=== PATIENT | male | born 1975 | race Caucasian/White ===

== ENCOUNTER 2023-06-24 14:36 | Observation (INO) | payer MEDICAID, SELFPAY ==
[2023-06-24] VITALS (9 sets, daily range): BP systolic 85–122; BP diastolic 48–89; PULSE 65–89; RESP 14–18; TEMP 36.6–37.3; O2SAT 95–99; BMI 30.4; BMI 29.2
--- NOTE | 2023-06-24 14:49 | EKG12_ITS ---
Test Reason : SYNCOPE Blood Pressure : / mmHG Vent. Rate : 070 BPM Atrial Rate : 070 BPM P-R Int : 158 ms QRS Dur : 092 ms QT Int : 408 ms P-R-T Axes : 056 059 058 degrees QTc Int : 440 ms Normal sinus rhythm Normal ECG Confirmed by KILEY MIRANDA, BAKARI ([id number]), copy editor NOAH ADAMS ([id number]) on 06/25/2023 10:05:49 AM Referred By: ALBERT Confirmed By:BAKARI CAO MD
--- NOTE | 2023-06-24 14:51 | EX.ED.DYSGE1 ---
[facility] <Dr. Sourav Flores MD - Last Filed: 06/28/23 08:22> History of Present Illness Chief Complaint: Syncope Detail of Chief Complaint: Syncope x2 after taking hits of marijuana Informant: patient and EMS (Squad administered Narcan because he had pinpoint pupils and was going out . Will need to assess run sheet.) Onset/Context/Timing Onset: Today, Hours and - (He reports when he was not [facility] he was diagnosed pulmonary embolus. He was placed on 1 week of blood thinner. He states the follow-up appointment was canceled and he is presently on no blood thinners. This was several months ago.) Current Severity: Mild Maximum Severity: Severe Worsened by: Uncertain Relieved by: Did get better with Narcan with respect to respiratory status and level of Associated Symptoms Associated Symptoms: Patient is uncertain Narrative Narrative: Patient is a 48-year-old male. He reports he was diagnosed with pulmonary embolus several months ago. He was given a starter dose of Xarelto. The physician he was referred to apparently was no longer in town. He is still waiting for a rescheduled appointment. The ER physician who saw him at outside facility would not prescribe Xarelto for him. Patient states today he took 2 hits of marijuana and became unresponsive. He had single episode x2 per nurse. EMS report the time of this note is not available for review. Reportedly he had pinpoint pupils and was not very responsive. His level of consciousness improved after Narcan. He denies fever, chills night sweats. He denies chest discomfort. He denies shortness of breath. He denies abdominal pain. Denies black or maroon-colored stool. He denies urologic symptoms. Patient denies history of coronary disease. Patient denies history of syncope in the past. I was asked to see patient immediately since he was diaphoretic and hypotensive. EMS report was available and patient apparently flagged down EMS. He walked to the cot. IV was established. Patient had deterioration and became disoriented pulling out the IV. This is different than what I was verbally told. He did admit to EMS smoked marijuana. Prior similar symptoms: No Recent Illness/Hospitalization: Yes (Pulmonary embolus) [facility] <Dr. Sourav Flores MD - Last Filed: 06/28/23 08:22> [facility] Medical History Pulmonary embolism Home Medications apixaban 5 mg (74 tabs) tablets in a dose pack (Eliquis DVT-PE Treat 30D Start) 5 mg PO BID #74 tabs 06/27/23 [Rx Last Taken Unknown] Allergy/AdvReac Type Severity Reaction Status Date / Time No Known Allergies Allergy Verified 06/24/23 14:44 Social History household members: none Smoking Status: Current every day smoker tobacco type: cigarettes ROS <Dr. Sourav Flores MD - Last Filed: 06/28/23 08:22> ROS ED Constitutional Constitutional ED: Denies chills, fever(s), subjective, sweats or weight loss Eyes Eyes: Denies blurry vision, change in vision or diplopia ENT ENT ED: Denies ear pain, rhinorrhea or sore throat Cardiovascular Cardiovascular: Reports other Details: Syncope and collapse ; Denies chest pain, orthopnea, palpitations, paroxysmal nocturnal dyspnea or racing heartbeat Respiratory/Chest Respiratory/Chest: Denies cough, dyspnea, dyspnea on exertion, orthopnea or paroxysmal nocturnal dyspnea Gastrointestinal Gastrointestinal: Denies abdominal pain, melena, nausea or vomiting Genitourinary Genitourinary ED: Denies dysuria or hematuria Musculoskeletal Musculoskeletal: Denies arthralgias, back pain, myalgias or neck pain Integumentary Denies abscess, Abrasions or rash Neurologic Neurologic: Reports weakness; Denies headache(s) or paresthesias Psychiatric Psychiatric: Denies anxiety Endocrine Endocrinology: Denies cold intolerance or heat intolerance Hematologic/Lymphatic Hematologic/Lymphatic: Reports systems reviewed and no addt'l complaints, except as documented EXAM <Dr. Sourav Flores MD - Last Filed: 06/28/23 08:22> Physical Exam Narrative Exam Narrative: Patient is hypotensive. He is not bradycardic. He appears pale. He is slightly moist. Const Vital Signs: 06/24/23 14:37 06/24/23 14:41 06/24/23 14:41 Temperature 98.1 F Temperature Source Oral Pulse Rate 65 75 Respiratory Rate 14 14 Respiratory Effort Short of Breath Respiratory Pattern Normal Blood Pressure Blood Pressure Mean Pulse Ox 95 96 Oxygen Delivery Method Room Air 06/24/23 14:43 06/24/23 15:36 Temperature Temperature Source Pulse Rate 72 Respiratory Rate 14 Respiratory Effort Respiratory Pattern Blood Pressure 85/48 L 104/54 L Blood Pressure Mean 60 70 Pulse Ox 98 Oxygen Delivery Method Room Air Positive well nourished and well developed Constitutional Narrative: Patient does not look well. General Appearance ED: well developed, diaphoretic and pallor; Negative for cyanotic or NAD HEENT Reports moist mucous membranes HEENT Narrative: Head is atraumatic normocephalic. Ears are normal. auditory canals are normal. TMs normal. Nares patent. Posterior pharynx is normal. Eyes PERRL and EOMs intact bilaterally General Eye ED: Negative for pale conjunctiva or scleral icterus Neck no lymphadenopathy, supple and no JVD Chest Wall inspection of chest normal and palpation of chest normal Resp normal respiratory effort and clear to auscultation bilaterally Cardio regular rate, regular rhythm, S1 normal heart sound, S2 normal heart sound and no murmurs GI normal to inspection, nondistended, normoactive bowel sounds, non-tender, non-distended and no masses; Negative for hepatosplenomegaly GI Narrative: There is no palpable pulsatile mass. There is no abdominal bruit Back/Spine no CVA tenderness Thoracic Spine / Upper Back: Negative for thoracic spinal tenderness Lumbar Spine / Lower Back: Negative for lumbar spinal tenderness Extremity normal to inspection General Extremety ED: Negative for edema or tenderness General Extremity: Negative for edema Neuro oriented x3, CN's II-XII intact bilaterally and no sensory deficits noted Sensorium / Orientation: alert Psych mental status grossly normal Skin no rashes or lesions noted and no wounds General Skin Exam: pallor; Negative for jaundice <Dr. Estefania Shields MD - Last Filed: 06/24/23 17:13> Physical Exam Const Vital Signs: 06/24/23 14:37 06/24/23 14:41 06/24/23 14:41 Temperature 98.1 F Temperature Source Oral Pulse Rate 65 75 Respiratory Rate 14 14 Respiratory Effort Short of Breath Respiratory Pattern Normal Blood Pressure Blood Pressure Mean Pulse Ox 95 96 Oxygen Delivery Method Room Air 06/24/23 14:43 06/24/23 15:36 Temperature Temperature Source Pulse Rate 72 Respiratory Rate 14 Respiratory Effort Respiratory Pattern Blood Pressure 85/48 L 104/54 L Blood Pressure Mean 60 70 Pulse Ox 98 Oxygen Delivery Method Room Air MDM <Dr. Sourav Flores MD - Last Filed: 06/28/23 08:22> [facility] Narrative Medical decision making narrative: Differential is expansive. Patient's single episode may be due to vasovagal, illicit drug use, pulmonary embolus since he is noncompliant with his anticoagulant. This could also represent cardiac ischemia. Will obtain EKG, appropriate blood work, tox screen. Since patient is hypotensive fluid bolus was ordered. No old lab results or records available through [facility]. History & Record Review Additional record(s) reviewed:: Prior labs and No prior records Lab Data Attestation: I reviewed the patient's lab results. Lab results narrative: CBC is remarkable for microcytic anemia. There are no old labs for comparison. Basic metabolic panel is unremarkable. Glucose is 130 with normal CO2 anion gap. First troponin is normal at 4. Alcohol was not detected. Lactate is elevated at 2.4. Suspect this is due to poor perfusion since he arrived hypotensive. His blood pressure did improve with fluids. Labs: Laboratory Results - last 24 hr 06/24/23 14:40 WBC 8.2 RBC 4.38 L Hgb 9.8 L Hct 32.3 L MCV 73.7 L MCH 22.4 L MCHC 30.3 L RDW Std Deviation 46.8 H RDW Coeff of Domitila 17.9 H Plt Count 459 H MPV 8.6 Immature Gran % (Auto) 0.500 Neut % (Auto) 38.1 L Lymph % (Auto) 44.2 H [place] % (Auto) 13.3 H Eos % (Auto) 2.9 Baso % (Auto) 1.0 Absolute Neuts (auto) 3.1 Absolute Lymphs (auto) 3.62 Nucleated RBC % 0 D-Dimer Quant (PE/DVT) 1.43 H* Sodium 141 Potassium 3.6 Chloride 109 H Carbon Dioxide 23.0 Anion Gap 9 BUN 18 Creatinine 1.15 Estim Creat Clear Calc 83.67 Est GFR (MDRD) Af Amer 87 Est GFR (MDRD) Non-Af 72 BUN/Creatinine Ratio 15.7 Glucose 130 H Lactic Acid 2.4 H* Calcium 8.6 Troponin I High Sens 4 Ethyl Alcohol < 3.0 D-dimer is elevated. With patient's past history will obtain CTA to assess for chronic versus subacute versus acute PE. Radiography Diagnostic Testing: Clinical Impression(s) from Imaging Studies Chest CTA 08/03/23 15:45 IMPRESSION: Small volume nonocclusive acute pulmonary emboli in the left main pulmonary artery. No evidence of right heart strain. Electronically Signed: Jose Manuel Lawrence MD at 17:00 EDT , ADDENDUM: 06/24/23 1713 IMPRESSION: Small volume nonocclusive acute pulmonary emboli in the left main pulmonary artery. No evidence of right heart strain. N.B. : BENNETT Mccann RN, confirmed on 06/24/2023 17:06:30 (ET) that the healthcare facility has received the radiology report. Electronically Signed: Jose Manuel Lawrence MD at 17:00 EDT , Rhythm Strip Rate: 68 Ectopy: None EKG Initial EKG: Attestation: I personally reviewed and interpreted this EKG as follows: Interpretation: Sinus Rhythm (Rate is 70. The EKG is normal. OK interval is 158 ms. Cures duration 92 ms. QT duration 408 ms. [place] is normal.) Treatment and Re-Evaluation :: Patient's blood pressure responded to IV fluids. Talk screen is still pending. Will turn patient's care over to the evening physician Dr. Estefania Nicholson. Suspect the episode is related to his illicit drug use. <Dr. Estefania Shields MD - Last Filed: 06/24/23 17:13> [facility] Lab Data Labs: Laboratory Results - last 24 hr 06/24/23 14:40 WBC 8.2 RBC 4.38 L Hgb 9.8 L Hct 32.3 L MCV 73.7 L MCH 22.4 L MCHC 30.3 L RDW Std Deviation 46.8 H RDW Coeff of Domitila 17.9 H Plt Count 459 H MPV 8.6 Immature Gran % (Auto) 0.500 Neut % (Auto) 38.1 L Lymph % (Auto) 44.2 H [place] % (Auto) 13.3 H Eos % (Auto) 2.9 Baso % (Auto) 1.0 Absolute Neuts (auto) 3.1 Absolute Lymphs (auto) 3.62 Nucleated RBC % 0 D-Dimer Quant (PE/DVT) 1.43 H* Sodium 141 Potassium 3.6 Chloride 109 H Carbon Dioxide 23.0 Anion Gap 9 BUN 18 Creatinine 1.15 Estim Creat Clear Calc 83.67 Est GFR (MDRD) Af Amer 87 Est GFR (MDRD) Non-Af 72 BUN/Creatinine Ratio 15.7 Glucose 130 H Lactic Acid 2.4 H* Calcium 8.6 Troponin I High Sens 4 Ethyl Alcohol < 3.0 Radiography Diagnostic Testing: Clinical Impression(s) from Imaging Studies Chest CTA 06/24/23 15:45 IMPRESSION: Small volume nonocclusive acute pulmonary emboli in the left main pulmonary artery. No evidence of right heart strain. Electronically Signed: Jose Manuel Lawrence MD at 17:00 EDT , ADDENDUM: 06/24/23 1713 IMPRESSION: Small volume nonocclusive acute pulmonary emboli in the left main pulmonary artery. No evidence of right heart strain. N.B. : BENNETT Mccann RN, confirmed on 06/24/2023 17:06:30 (ET) that the healthcare facility has received the radiology report. Electronically Signed: Jose Manuel Lawrence MD at 17:00 EDT , Treatment and Re-Evaluation :: Patient's blood pressure responded to IV fluids. Talk screen is still pending. Will turn patient's care over to the evening physician Dr. Estefania Nicholson. Suspect the episode is related to his illicit drug use. Patient signed out to me pending CTA. CT reveals a small volume nonocclusive acute pulmonary emboli in the left main pulmonary artery. No evidence of heart strain at this time. Test results are discussed with the patient. He states his initial blood clot was about 2 months ago. There was no enticing factor for that. In light of this patient will have a hypercoagulable panel drawn and he will be given a dose of Lovenox. Blood pressure is still around 105 systolic. I will speak with hospitalist regarding observation given his PE and syncope x2. Discharge Plan Dx/Rx/DC Orders Clinical Impression: Acute alteration in mental status, Acute hypotension, Illicit drug use, Pulmonary embolism Disposition Disposition: Acute Care Hospital [facility] Discharge Date/Time: 06/24/23 18:31
[2023-06-24] MEDS: 0.9% Normal Saline 1,000 ML 1000 ML IV (15:04)
[2023-06-24 15:22] LABS: Absolute Lymphocyte Count 3.62 X10^3/uL (0.83-4.51); Absolute Neutrophil Count 3.1 X10^3/uL (2.0-7.7); Basophil# 0.08 X10^3/uL; Eosinophil# 0.24 X10^3/uL; Eosinophils% 2.9 % (0-5); Hematocrit 32.3 % (40-54); Hemoglobin 9.8 g/dL (13.0-16.5); Lymphocyte # 3.62 X10^3/ul (0.83-4.51); Lymphocyte % 44.2 % (19-41); Mean Corp Hgb Conc 30.3 g/dL (32-36); Mean Corpuscular Hgb 22.4 pg (27.0-32.0); Mean Corpuscular Volume 73.7 fL (80-94); Mean Platelet Vol. 8.6 fl (6.2-12.0); Monocyte# 1.09 X10^3/uL; Monocyte% 13.3 % (0-10); NRBC Flagged by Analyzer 0 % (0-5); Neutrophil # 3.12 X10^3/uL (2.7-7.7); Neutrophil % 38.1 % (47-70); Platelet Count 459 K/mm3 (150-450); RBC Distribution Width CV 17.9 % (11.6-14.6); RBC Distribution Width SD 46.8 fl (35.1-43.9); Red Blood Count 4.38 M/mm3 (4.6-6.2); White Blood Count 8.2 K/mm3 (4.4-11.0)
[2023-06-24 15:43] LABS: D-Dimer Quantitative (DVT/PE) 1.43 FEU/ug/m (0.27-0.49)
--- NOTE | 2023-06-24 15:45 | CT_ITS ---
ACR Level 3 findings have been noted. An addendum which confirms receipt of the report will follow. INDICATION: Dyspnea, hypotension, elevated D-dimer EXAMINATION: CTA Chest WO/W Contrast Injection TECHNIQUE: Helically acquired images were obtained of the chest following administration of IV contrast. A radiation dose optimization technique was used for this scan. 3D postprocessing images including MIPS were reviewed. IV Contrast dosage and agent: IV 100mL [id number] COMPARISON: None. FINDINGS: Lungs: Scattered subsegmental atelectasis. Mediastinum: The cardiomediastinal silhouette is not enlarged. No mediastinal, hilar or axillary adenopathy. Mild aortic arch and coronary artery calcifications. Small volume nonocclusive clot seen within the left main pulmonary artery. No evidence of right heart strain. Pleura: Unremarkable Bones/Soft tissues: There are diffuse degenerative changes of the spine. Upper abdomen: No visualized abnormalities in the upper abdomen. CT/CTA Chest W/WO Contrast IMPRESSION: Small volume nonocclusive acute pulmonary emboli in the left main pulmonary artery. No evidence of right heart strain. Electronically Signed: Jose Manuel Lawrence MD at 17:00 EDT ,
[2023-06-24 15:51] LABS: Anion Gap 9 (5-15); BUN 18 mg/dL (7-18); BUN/Creat Ratio 15.7 RATIO (10-20); Calcium,Total 8.6 mg/dL (8.5-10.1); Chloride 109 mmol/L (98-107); Creatinine, Serum 1.15 mg/dL (0.70-1.30); EST Glomerular Filtration Rate 72 mL/min (>60); Est Glom Filt Rate - Afr Amer 87 mL/min (>60); Estimated Creatinine Clearance 83.67 ml/min; Glucose 130 mg/dL (74-106); Potassium 3.6 mmol/L (3.5-5.1); Sodium Level 141 mmol/L (136-145); Troponin-I HS 4 pg/mL (3.0-78.0)
[2023-06-24 15:54] LABS: Alcohol, Blood (Medical)-Serum < 3.0 mg/dL
[2023-06-24 16:36] LABS: Lactic Acid 2.4 mmol/L (0.4-1.9)
--- NOTE | 2023-06-24 17:18 | PCM.HP.STD ---
HPI - General General Date of Admission: 06/24/23 Date of Service: 06/24/23 Chief Complaint: Syncope x2 stool after taking smoking marijuana HPI Narrative NANCY ELLIOTT, is a 48 MWas brought to ED by EMS for 2 times after he taking hits of marijuana as per the patient. Patient is honest in admitting that he uses marijuana very often, smokes cigarette and was regularly using crack cocaine until 2 weeks ago since then he has not used it. Patient is stated that he had 2 episodes of syncope which lasted for about 30 seconds to about 1 minutes in rapid succession when he gets unaware, unconscious and then wake up after little confusion. He said he had also urinary incontinence during the episode. He denies prior history of seizure but had similar episodes of syncope about 7 times in 2 days about 3 months ago when he had first-time PE. At that time he was started on Eliquis but was given only 5 days of prescription. He has a history of his smoking about 2 packs/day started at the age of 11 and then cut down to 10 to 15 cigarettes. Patient denies shortness of breath at rest or on exertion, fever chills, has mild dry cough sometimes but not recently. In ED, he had CT angiogram of chest which shows small volume nonocclusive acute pulmonary embolism left main pulmonary artery but no right heart strain. Patient was given therapeutic dose of Lovenox. Patient blood pressure was also on lower side in ED. It was 85/48 and then improved to 100/54. No hypoxia or tachypnea. Patient denies history of thromboembolism in first-degree family relative and states no respiratory history. First time he had pulmonary Wilcox 3 months ago it happened spontaneously therefore hyperchloride work-up ordered by ED physician [facility], [facility] Medical History Pulmonary embolism Allergy/AdvReac Type Severity Reaction Status Date / Time No Known Allergies Allergy Verified 06/24/23 14:44 Social History household members: none Smoking Status: Current every day smoker tobacco type: cigarettes ROS ROS Narrative Constitutional: No fever. No fatigue or acute URI symptoms. HEENT: Reports systems reviewed and no addt'l complaints, except as documented Respiratory/Chest: No acute shortness of breath or respiratory distress or wheezing. CVS: No history of coronary artery disease. Denies chest pain/pressure or tightness or pleuritic chest pain Gastrointestinal: Denies coffee ground emesis, hematemesis or vomiting Genitourinary: Denies burning urination or new urinary tract symptoms Musculoskeletal: Denies acute joint pain or limited range of motion. No acute injury Neurologic: As described in HPI. Suspicion of possible seizure as patient had postictal confusion and urinary incontinence skin: No ulcer. No rash Endocrinology: Reports systems reviewed and no addt'l complaints, except as documented Hematologic/Lymphatic: Reports systems reviewed and no addt'l complaints, except as documented Rest 14 ROS are negative except as mentioned in HPI Vital Signs Vital Signs Vital Signs: 06/24/23 14:37 06/24/23 14:41 06/24/23 14:41 Temperature 98.1 F Temperature Source Oral Pulse Rate 65 75 Respiratory Rate 14 14 Respiratory Effort Short of Breath Respiratory Pattern Normal Blood Pressure Blood Pressure Mean Pulse Ox 95 96 Oxygen Delivery Method Room Air 06/24/23 14:43 06/24/23 15:36 Temperature Temperature Source Pulse Rate 72 Respiratory Rate 14 Respiratory Effort Respiratory Pattern Blood Pressure 85/48 L 104/54 L Blood Pressure Mean 60 70 Pulse Ox 98 Oxygen Delivery Method Room Air Weight Weight: 218 lb 6.4 oz Body Mass Index (BMI) 30.4 Physical Exam Narrative General: Alert, Oriented x3, Cooperative HEENT: Atraumatic, PERRLA, EOMI, Normocephalic Oral: Oral oral mucosa dry. No Gingival or Mucosal Lesions/ Ulcerations Neck: Supple, No JVD, Negative Carotid Bruits Lungs: Air entry diminished in bilateral lung bases. Mild bilateral expiratory rhonchi. Cardiovascular: Regular rate, Regular Rhythm, Normal S1, Normal S2, No murmurs Abdomen: Bowel Sounds Present, Soft, Non Tender, Non-Distended : No renal angle tenderness. No suprapubic tenderness. Extremities: No edema, Capillary Refill Less than 3 Seconds Skin: No rashes, No breakdown Musculoskeletal: No Tenderness to Palpation of Joints or Extremities. Muscle strength 5/5 at major joints. Neurological: Cranial nerves II-XII grossly intact, DTR 2+/4. No acute focal neurological deficit. Psych/Mental Status: Normal Affect, Appropriate. Results Lab / Micro Data 06/24/23 14:40 06/24/23 14:40 Labs: Laboratory Results - last 24 hr 06/24/23 14:40: WBC 8.2, RBC 4.38 L, Hgb 9.8 L, Hct 32.3 L, MCV 73.7 L, MCH 22.4 L, MCHC 30.3 L, RDW Std Deviation 46.8 H, RDW Coeff of Domitila 17.9 H, Plt Count 459 H, MPV 8.6, Immature Gran % (Auto) 0.500, Neut % (Auto) 38.1 L, Lymph % (Auto) 44.2 H, Gallia % (Auto) 13.3 H, Eos % (Auto) 2.9, Baso % (Auto) 1.0, Absolute Neuts (auto) 3.1, Absolute Lymphs (auto) 3.62, Nucleated RBC % 0, D-Dimer Quant (PE/DVT) 1.43 H*, Sodium 141, Potassium 3.6, Chloride 109 H, Carbon Dioxide 23.0, Anion Gap 9, BUN 18, Creatinine 1.15, Estim Creat Clear Calc 83.67, Est GFR (MDRD) Af Amer 87, Est GFR (MDRD) Non-Af 72, BUN/Creatinine Ratio 15.7, Glucose 130 H, Lactic Acid 2.4 H*, Calcium 8.6, Troponin I High Sens 4, Ethyl Alcohol < 3.0 Rhythm Strip Rate: 68 Ectopy: None Radiology Impression Chest CTA 06/24/23 15:45 IMPRESSION: Small volume nonocclusive acute pulmonary emboli in the left main pulmonary artery. No evidence of right heart strain. Electronically Signed: Jose Manuel Lawrence MD at 17:00 EDT , ADDENDUM: 06/24/23 1713 IMPRESSION: Small volume nonocclusive acute pulmonary emboli in the left main pulmonary artery. No evidence of right heart strain. N.B. : BENNETT Mccann RN, confirmed on 06/24/2023 17:06:30 (ET) that the healthcare facility has received the radiology report. Electronically Signed: Jose Manuel Lawrence MD at 17:00 EDT , Assessment & Plan Assessment/Plan (1) Pulmonary embolism: QUALIFIERS: Pulmonary embolism type: other Chronicity: acute Acute cor pulmonale presence: without acute cor pulmonale Qualified Code(s): I26.99 - Other pulmonary embolism without acute cor pulmonale (2) Illicit drug use: (3) Acute hypotension: PLAN: Plan 1. Syncope x2 most likely due to acute pulmonary embolism and left main pulmonary artery with recent history of PE about 3 months ago: Patient is being admitted in PCU. CT angiogram initially reviewed shows small volume nonocclusive acute pulmonary embolism in left main pulmonary artery with no evidence of right heart strain. Patient was given therapeutic dose of Lovenox in ED and started on Eliquis 10 mg p.o. twice daily for 1 week and then continue 5 mg twice daily. I think patient should continue lifelong as it seems patient has idiopathic because of pulmonary embolism or might be substance use related. 2D echo is ordered for tomorrow AM. Troponin and BNP are normal. Serum magnesium and phosphorus level normal. Hypercoagulable work-up ordered by ED physician may be followed by heavy equipment operator/paver as an outpatient for suspected idiopathic pulmonary embolism 2. Transient hypotension with lactic acidosis, resolved: By history and exam, there is no clinical evidence of infection or sepsis therefore sepsis ruled out. BP in triage was 85/48. I think lactic acidosis is probably due to transient hypotension in ED which has recovered with IV fluid bolus given in ED. Most recent blood pressure 119/67. Repeat lactic acid normal. 3. History of polysubstance use and cigarette smoking: Patient is smokes 15 cigarettes currently and also very frequent marijuana smoking. He was smoking 2 packs during teenage. Patient was also using, smoking/snorting methamphetamine frequently until 2 weeks ago. Denies drinking alcohol. U tox positive of cannabinoids. Patient has mild cough on and off therefore probably might be undiagnosed COPD and advised PFT as an outpatient pulmonary clinic 4. Suspected seizure although not diagnosed: Patient had similar episodes of syncope with confusion and urinary incontinence about 3 months ago and now 2 episodes. Patient has not been formally diagnosed with epilepsy. I think it might be related due to substance use methamphetamine or marijuana. Advised to quit polysubstance use. VTE prophylaxis: Patient already has PE on therapeutic dose of Lovenox changed to Eliquis. Living will/advanced directive/end of life care: Patient does not have living will or advanced directive. Patient has a girlfriend at the bedside. After discussion of benefits/risks procedures involved with full code, DNR CC arrest and DNR CC, the patient opted for full code. Patient does want artificial life support including intubation, tube feed, ventilator and/chest compression, central venous catheter, vasopressor and DC shock if needed Total time spent in [id number] encounter in discussion of advanced directive 17 minutes. Laboratory Results 06/24/23 14:40: WBC 8.2, RBC 4.38 L, Hgb 9.8 L, Hct 32.3 L, MCV 73.7 L, MCH 22.4 L, MCHC 30.3 L, RDW Std Deviation 46.8 H, RDW Coeff of Domitila 17.9 H, Plt Count 459 H, MPV 8.6, Immature Gran % (Auto) 0.500, Neut % (Auto) 38.1 L, Lymph % (Auto) 44.2 H, Gallia % (Auto) 13.3 H, Eos % (Auto) 2.9, Baso % (Auto) 1.0, Absolute Neuts (auto) 3.1, Absolute Lymphs (auto) 3.62, Nucleated RBC % 0, D-Dimer Quant (PE/DVT) 1.43 H*, Sodium 141, Potassium 3.6, Chloride 109 H, Carbon Dioxide 23.0, Anion Gap 9, BUN 18, Creatinine 1.15, Estim Creat Clear Calc 83.67, Est GFR (MDRD) Af Amer 87, Est GFR (MDRD) Non-Af 72, BUN/Creatinine Ratio 15.7, Glucose 130 H, Lactic Acid 2.4 H*, Calcium 8.6, Phosphorus 2.8, Magnesium 2.2, Troponin I High Sens 4, B-Natriuretic Peptide 7.7, Ethyl Alcohol < 3.0 06/24/23 17:28: Protein C Antigen Pending, Functional Protein C Pending, Prot C Funct Activity Pending, Antithrombin III Ag Pending, Func Antithrombin III Pending, Factor V Leiden Mutat Pending, Beta-2-GPI IgG Ab Pending, Beta-2-GPI IgA Ab Pending, Beta-2-GPI IgM Ab Pending, Anti-Cardiolipin IgG Ab Pending, Anti-Cardiolipin IgM Ab Pending, Factor II DNA Analysis Pending 06/24/23 18:29: Urine Opiates Screen NEGATIVE, Urine Methadone Screen NEGATIVE, Ur Barbiturates Screen NEGATIVE, Ur Phencyclidine Scrn NEGATIVE, Ur Amphetamines Screen NEGATIVE, MDMA (Ecstasy) Screen NEGATIVE, U Benzodiazepines Scrn NEGATIVE, Urine Cocaine Screen NEGATIVE, U Cannabinoids Screen POSITIVE H, Ur Drug Screen Comment 06/24/23 18:30: Lactic Acid 1.6 Clinical Impression(s) from Imaging Studies Chest CTA 06/24/23 15:45 IMPRESSION: Small volume nonocclusive acute pulmonary emboli in the left main pulmonary artery. No evidence of right heart strain. 41, Potassium 3.6, Chloride 109 H, Carbon Dioxide 23.0, Anion Gap 9, BUN 18, Creatinine 1.15, Estim Creat Clear Calc 83.67, Est GFR (MDRD) Af Amer 87, Est GFR (MDRD) Non-Af 72, BUN/Creatinine Ratio 15.7, Glucose 130 H, Lactic Acid 2.4 H*, Calcium 8.6, Troponin I High Sens 4, Ethyl Alcohol < 3.0 Charges/Coding Visit Charges Inpatient E&M: 27176 Init Hosp L3 Procedures Hospitalists Procedures: 41232 Advncd Care Plan 30 Min
[2023-06-24] MEDS: Enoxaparin 100 MG/ML Syringe SC (17:37)
[2023-06-24 18:00] LABS: Magnesium 2.2 mg/dL (1.6-2.6); Phosphorus 2.8 mg/dL (2.5-4.9)
[2023-06-24 19:09] LABS: BNP,B-Type NATRIURETIC PEPTIDE 7.7 pg/mL (0-100)
[2023-06-24 19:09] LABS: Amphetamine Urine VISTA NEGATIVE (<1000 ng/mL); Barbiturate Urine VISTA NEGATIVE (< 200 ng/mL); Benzodiazepine Urine VISTA NEGATIVE (< 200 ng/mL); Cocaine Urine VISTA NEGATIVE (< 300 ng/mL); Ecstacy Urine VISTA NEGATIVE (< 500 ng/mL); Methadone Urine VISTA NEGATIVE (< 300 ng/mL); PCP Urine VISTA NEGATIVE (< 25 ng/mL); THC Urine VISTA POSITIVE (< 50 ng/mL); Vista UDS pH Range 5
[2023-06-24 19:11] LABS: Reflex Lactate? Y
[2023-06-24 19:27] LABS: Lactic Acid 1.6 mmol/L (0.4-1.9)
--- NOTE | 2023-06-24 20:42 | ECHOD_ITS ---
Version 2 Reason For Study: SYNCOPE Procedure This was a 2D Doppler, Color Flow transthoracic echocardiogram. Exam performed portable in patient room. Left Ventricle Normal LV size. Left ventricular systolic function is normal. The estimated ejection fraction is 55 %. Stage 1 diastolic dysfunction. No regional wall motion abnormalities noted. Right Ventricle Normal RV size. Normal systolic function. Atria The left atrium is moderately enlarged. Normal right atrium. Tricuspid Valve Normal tricuspid valve. Mild tricuspid valve insufficiency. Pulmonary artery systolic pressure is 30 mmHg. Pulmonic Valve Normal pulmonic valve. Great Vessels Normal aortic root. The pulmonary artery is normal size. Normal inferior vena cava. Pericardium/Pleural No pericardial effusion. MMode/2D Measurements & Calculations LVIDd: 5.8 cm IVSd: 0.95 cm Ao root diam: 2.7 cm LVIDs: 3.9 cm LVPWd: 1.1 cm FS: 32.6 % LAV(MOD-bp): 69.8 ml SV(MOD-sp4): 93.8 ml LVAd ap4: 39.6 cm2 LAV(MOD-bp) Indexed: 31.7 ml/m2 LVLd ap4: 9.1 cm LAV(MOD-sp2): 48.9 ml EDV(MOD-sp4): 146.4 ml LAV(MOD-sp4): 95.3 ml EDV(sp4-el): 146.1 ml LVAs ap4: 20.1 cm2 LVLs ap4: 6.4 cm ESV(MOD-sp4): 52.6 ml ESV(sp4-el): 53.0 ml EF(MOD-sp4): 64.1 % EF(sp4-el): 63.7 % SV(sp4-el): 93.0 ml LA dimension(2D): 3.7 cm LA A4 area: 26.2 cm2 TAPSE: 2.9 cm RA A4 area: 13.2 cm2 Time Measurements MV dec time: 0.22 sec Doppler Measurements & Calculations MV E max mitch: 101.5 cm/sec Lat Peak E' Mitch: 12.9 cm/sec Med Peak E' Mitch: 8.8 cm/sec MV A max mitch: 102.1 cm/sec E/E' lat: 7.9 E/E' med: 11.6 MV E/A: 0.99 MV V2 max: 126.1 cm/sec Ao V2 max: 163.5 cm/sec MV max P.4 mmHg MV dec slope: 470.7 cm/sec2 Ao max P.7 mmHg MV V2 mean: 92.4 cm/sec Ao V2 mean: 115.2 cm/sec MV mean P.6 mmHg Ao mean P.0 mmHg MV V2 VTI: 44.9 cm Ao V2 VTI: 33.7 cm AV (velocity ratio): 0.87 LV V1 max: 142.7 cm/sec PA V2 max: 107.1 cm/sec TR max mitch: 261.0 cm/sec LV V1 max P.2 mmHg PA V2 mean: 72.5 cm/sec TR max P.2 mmHg LV V1 mean P.6 mmHg LV V1 mean: 100.7 cm/sec LV V1 VTI: 29.2 cm ECHO/Echo Complete Interpretation Summary Normal LV size. Left ventricular systolic function is normal. The estimated ejection fraction is 55 %. Stage 1 diastolic dysfunction. The left atrium is moderately enlarged. Pulmonary artery systolic pressure is 30 mmHg. Ordering Physician: Porfirio Alonso Referring Physician: FELI PCP Performed By: Keila Owens RCS
[2023-06-24] MEDS: 0.9% Normal Saline 1,000 ML 100 ML IV (21:31)
[2023-06-25] VITALS (8 sets, daily range): BP systolic 108–132; BP diastolic 56–84; PULSE 67–88; RESP 16–18; TEMP 36.1–37.3; O2SAT 94–98
[2023-06-25] MEDS: Calcium Carbonate 500 MG Tablet PO (01:40)
[2023-06-25] MEDS: Mag Hydrox/Al Hydrox/Simeth 30 ML UDC PO (02:58)
[2023-06-25 06:35] LABS: Absolute Lymphocyte Count 2.61 X10^3/uL (0.83-4.51); Absolute Neutrophil Count 5.1 X10^3/uL (2.0-7.7); Basophil# 0.05 X10^3/uL; Basophil% 0.6 % (0-1); Eosinophil# 0.15 X10^3/uL; Eosinophils% 1.7 % (0-5); Hematocrit 32.2 % (40-54); Hemoglobin 9.3 g/dL (13.0-16.5); Lymphocyte # 2.61 X10^3/ul (0.83-4.51); Lymphocyte % 29.9 % (19-41); Mean Corp Hgb Conc 28.9 g/dL (32-36); Mean Corpuscular Hgb 22.2 pg (27.0-32.0); Monocyte# 0.76 X10^3/uL; Monocyte% 8.7 % (0-10); NRBC Flagged by Analyzer 0 % (0-5); Neutrophil # 5.12 X10^3/uL (2.7-7.7); Neutrophil % 58.6 % (47-70); Platelet Count 400 K/mm3 (150-450); RBC Distribution Width CV 18.1 % (11.6-14.6); RBC Distribution Width SD 49.9 fl (35.1-43.9); Red Blood Count 4.18 M/mm3 (4.6-6.2); White Blood Count 8.7 K/mm3 (4.4-11.0)
[2023-06-25 07:26] LABS: Anion Gap 3 (5-15); BUN 13 mg/dL (7-18); BUN/Creat Ratio 15.6 RATIO (10-20); Calcium,Total 8.7 mg/dL (8.5-10.1); Chloride 108 mmol/L (98-107); Creatinine, Serum 0.84 mg/dL (0.70-1.30); EST Glomerular Filtration Rate 104 mL/min (>60); Est Glom Filt Rate - Afr Amer 126 mL/min (>60); Estimated Creatinine Clearance 118.04 ml/min; Glucose 98 mg/dL (74-106); Potassium 3.9 mmol/L (3.5-5.1); Sodium Level 139 mmol/L (136-145); Thyroid Stim Hormone (TSH) 0.66 uIU/mL (0.358-3.74)
[2023-06-25] MEDS: APIXABAN 5 MG TABLET 10 MG PO ×2 (08:13→22:21)
[2023-06-25] MEDS: Pantoprazole Sodium 40 MG Tablet PO (09:29)
--- NOTE | 2023-06-25 16:19 | PCM.PN.HOSP ---
Reason for Visit Reason for Visit: Diagnoses Other psychoactive substance use, unspecified, uncomplicated (06/24/23) Other pulmonary embolism without acute cor pulmonale (06/24/23) Hypotension, unspecified (06/24/23) Syncope and collapse (06/24/23) Subjective Subjective Patient reports still feeling a little bit out of it and said he was confused for a couple hours after the passing out episodes. Primarily focused on wanting a cigarette and when he needed to walk outside, had no other focal complaints Objective Data Objective Data Vital Signs: Vital Signs Temp Pulse Resp BP Pulse Ox O2 Del Method 98.1 F 84 18 111/56 L 96 Room Air 06/25/23 15:56 06/25/23 15:56 06/25/23 15:56 06/25/23 15:56 06/25/23 15:56 06/25/23 15:56 Oxygen Delivery Method Room Air Weight: 98 kg Body Mass Index (BMI) 29.2 Intake & Output: Intake and Output for Last 24 Hours 06/23/23 06/24/23 06/25/23 23:59 23:59 23:59 Intake Total 1000 / 1000 1845 / 1845 Balance 1000 / 1000 1845 / 1845 Lab / Micro Data 06/25/23 06:10 06/25/23 06:10 Labs: Laboratory Results - last 24 hr 06/24/23 14:40: Sodium 141, Potassium 3.6, Chloride 109 H, Carbon Dioxide 23.0, Anion Gap 9, BUN 18, Creatinine 1.15, Estim Creat Clear Calc 83.67, Est GFR (MDRD) Af Amer 87, Est GFR (MDRD) Non-Af 72, BUN/Creatinine Ratio 15.7, Glucose 130 H, Lactic Acid 2.4 H*, Calcium 8.6, Phosphorus 2.8, Magnesium 2.2, Troponin I High Sens 4, B-Natriuretic Peptide 7.7 06/24/23 18:29: Urine Opiates Screen NEGATIVE, Urine Methadone Screen NEGATIVE, Ur Barbiturates Screen NEGATIVE, Ur Phencyclidine Scrn NEGATIVE, Ur Amphetamines Screen NEGATIVE, MDMA (Ecstasy) Screen NEGATIVE, U Benzodiazepines Scrn NEGATIVE, Urine Cocaine Screen NEGATIVE, U Cannabinoids Screen POSITIVE H, Ur Drug Screen Comment 06/24/23 18:30: Lactic Acid 1.6 06/25/23 06:10: WBC 8.7, RBC 4.18 L, Hgb 9.3 L, Hct 32.2 L, MCV 77.0 L, MCH 22.2 L, MCHC 28.9 L, RDW Std Deviation 49.9 H, RDW Coeff of Domitila 18.1 H, Plt Count 400, MPV 9.0, Immature Gran % (Auto) 0.500, Neut % (Auto) 58.6, Lymph % (Auto) 29.9, [place] % (Auto) 8.7, Eos % (Auto) 1.7, Baso % (Auto) 0.6, Absolute Neuts (auto) 5.1, Absolute Lymphs (auto) 2.61, Nucleated RBC % 0, Sodium 139, Potassium 3.9, Chloride 108 H, Carbon Dioxide 28.0, Anion Gap 3 L, BUN 13, Creatinine 0.84, Estim Creat Clear Calc 118.04, Est GFR (MDRD) Af Amer 126, Est GFR (MDRD) Non-Af 104, BUN/Creatinine Ratio 15.6, Glucose 98, Calcium 8.7, TSH 0.66 Radiography Diagnostic Testing: Radiology Impression Chest CTA 06/24/23 15:45 IMPRESSION: Small volume nonocclusive acute pulmonary emboli in the left main pulmonary artery. No evidence of right heart strain. Electronically Signed: Jose Manuel Lawrence MD at 17:00 EDT , ADDENDUM: 06/24/23 1713 IMPRESSION: Small volume nonocclusive acute pulmonary emboli in the left main pulmonary artery. No evidence of right heart strain. N.B. : BENNETT Mccann RN, confirmed on 06/24/2023 17:06:30 (ET) that the healthcare facility has received the radiology report. Electronically Signed: Jose Manuel Lawrence MD at 17:00 EDT , Echocardiogram 06/24/23 20:42 Interpretation Summary Normal LV size. Left ventricular systolic function is normal. The estimated ejection fraction is 55 %. Stage 1 diastolic dysfunction. The left atrium is moderately enlarged. Pulmonary artery systolic pressure is 30 mmHg. Ordering Physician: Porfirio Alonso Referring Physician: FELI PCP Performed By: Keila Owens RCS Rhythm Strip Rate: 68 Ectopy: None Physical Exam Narrative General: Alert, oriented, no apparent distress HEENT: Atraumatic, normocephalic Eyes: Anicteric, normal conjunctiva, extraocular movements grossly intact Neck: Supple Respiratory: Clear to auscultation bilaterally, normal respiratory effort Cardiovascular: Regular rate and rhythm GI: Soft, nontender, nondistended Extremities: No edema Musculoskeletal: Moving all extremities Neuro: No overt focal neurological deficits Skin: No rashes appreciated Psych: Cooperative Assessment & Plan Assessment/Plan (1) Pulmonary embolism: QUALIFIERS: Pulmonary embolism type: other Chronicity: acute Acute cor pulmonale presence: without acute cor pulmonale Qualified Code(s): I26.99 - Other pulmonary embolism without acute cor pulmonale (2) Illicit drug use: (3) Acute hypotension: PLAN: Plan 1. Syncope x2 most likely due to acute pulmonary embolism and left main pulmonary artery with recent history of PE about 3 months ago: Patient is being admitted in PCU. CT angiogram initially reviewed shows small volume nonocclusive acute pulmonary embolism in left main pulmonary artery with no evidence of right heart strain. Patient was given therapeutic dose of Lovenox in ED and started on Eliquis 10 mg p.o. twice daily for 1 week and then continue 5 mg twice daily. I think patient should continue lifelong as it seems patient has idiopathic because of pulmonary embolism or might be substance use related. 2D echo is ordered for tomorrow AM. Troponin and BNP are normal. Serum magnesium and phosphorus level normal. Hypercoagulable work-up ordered by ED physician may be followed by training analyst as an outpatient for suspected idiopathic pulmonary embolism -06/25: Continue anticoagulation, patient reported that with his syncopal episodes not only did he have an episode of urine incontinence he additionally felt he remained fairly confused for over 5 hours and still does not feel quite right so we will obtain EEG. Pending results and clinical progress will consider neurology evaluation 2. Transient hypotension with lactic acidosis, resolved: By history and exam, there is no clinical evidence of infection or sepsis therefore sepsis ruled out. BP in triage was 85/48. I think lactic acidosis is probably due to transient hypotension in ED which has recovered with IV fluid bolus given in ED. Most recent blood pressure 119/67. Repeat lactic acid normal. -06/25: BP improved, echocardiogram with no right heart strain and showed EF 55% with stage I diastolic dysfunction 3. History of polysubstance use and cigarette smoking: Patient is smokes 15 cigarettes currently and also very frequent marijuana smoking. He was smoking 2 packs during teenage. Patient was also using, smoking/snorting methamphetamine frequently until 2 weeks ago. Denies drinking alcohol. U tox positive of cannabinoids. Patient has mild cough on and off therefore probably might be undiagnosed COPD and advised PFT as an outpatient pulmonary clinic -06/25: Strongly advised cessation. Nicotine patch ordered 4. Suspected seizure although not diagnosed: Patient had similar episodes of syncope with confusion and urinary incontinence about 3 months ago and now 2 episodes. Patient has not been formally diagnosed with epilepsy. I think it might be related due to substance use methamphetamine or marijuana. Advised to quit polysubstance use. -06/25: See #1 VTE prophylaxis: Patient already has PE on therapeutic dose of Lovenox changed to Eliquis. Time spent in the patient's overall evaluation,decision-making process, review of diagnostic data, adjustment of management, discussion with other providers, nursing nursing and ancillary staff involved in patient's care documentation, 45 minutes Charges/Coding Visit Charges Inpatient E&M: 52130 Subs Hosp L2
[2023-06-25] MEDS: Famotidine 20 MG Tablet PO (22:21)
[2023-06-26 03:00] VITALS: BP 120/63; PULSE 60; RESP 16; TEMP 36.5; O2SAT 97
[2023-06-26 05:48] LABS: Absolute Lymphocyte Count 2.09 X10^3/uL (0.83-4.51); Absolute Neutrophil Count 2.6 X10^3/uL (2.0-7.7); Basophil# 0.06 X10^3/uL; Basophil% 1.1 % (0-1); Eosinophils% 3.6 % (0-5); Hematocrit 32.2 % (40-54); Hemoglobin 9.7 g/dL (13.0-16.5); Lymphocyte # 2.09 X10^3/ul (0.83-4.51); Lymphocyte % 37.2 % (19-41); Mean Corp Hgb Conc 30.1 g/dL (32-36); Mean Corpuscular Hgb 22.6 pg (27.0-32.0); Mean Corpuscular Volume 74.9 fL (80-94); Mean Platelet Vol. 8.6 fl (6.2-12.0); Monocyte# 0.69 X10^3/uL; Monocyte% 12.3 % (0-10); NRBC Flagged by Analyzer 0 % (0-5); Neutrophil # 2.57 X10^3/uL (2.7-7.7); Neutrophil % 45.6 % (47-70); Platelet Count 381 K/mm3 (150-450); RBC Distribution Width CV 18.1 % (11.6-14.6); RBC Distribution Width SD 48.2 fl (35.1-43.9); White Blood Count 5.6 K/mm3 (4.4-11.0)
[2023-06-26 06:23] LABS: Anion Gap 5 (5-15); BUN 14 mg/dL (7-18); BUN/Creat Ratio 16.2 RATIO (10-20); Calcium,Total 8.8 mg/dL (8.5-10.1); Chloride 110 mmol/L (98-107); Creatinine, Serum 0.87 mg/dL (0.70-1.30); EST Glomerular Filtration Rate 100 mL/min (>60); Est Glom Filt Rate - Afr Amer 121 mL/min (>60); Estimated Creatinine Clearance 113.97 ml/min; Glucose 93 mg/dL (74-106); Potassium 3.9 mmol/L (3.5-5.1); Sodium Level 141 mmol/L (136-145)
[2023-06-26 08:30] VITALS: BP 125/83; PULSE 73; RESP 16; TEMP 37.1; O2SAT 96
[2023-06-26] MEDS: APIXABAN 5 MG TABLET 10 MG PO ×2 (11:21→21:39)
[2023-06-26] MEDS: Pantoprazole Sodium 40 MG Tablet PO (11:21)
--- NOTE | 2023-06-26 13:10 | PN_ITS ---
Subjective Subjective Patient seen and examined. HE had no complaints. REview of systems is otherwise negative, He has remained hemodynamically stable. Objective Data Objective Data Vital Signs: Vital Signs Temp Pulse Resp BP Pulse Ox O2 Del Method 98.7 F 73 16 125/83 H 96 Room Air 06/26/23 08:30 06/26/23 08:30 06/26/23 08:30 06/26/23 08:30 06/26/23 08:30 06/26/23 08:45 Oxygen Delivery Method Room Air Weight: 216 lb 0.848 oz Body Mass Index (BMI) 29.2 Intake & Output: Intake and Output for Last 24 Hours 06/24/23 06/25/23 06/26/23 23:59 23:59 23:59 Intake Total 1000 / 1000 1845 / 1845 550 / 550 Balance 1000 / 1000 1845 / 1845 550 / 550 Lab / Micro Data 06/26/23 05:05 06/26/23 05:05 Labs: Laboratory Results - last 24 hr 06/26/23 05:05: WBC 5.6, RBC 4.30 L, Hgb 9.7 L, Hct 32.2 L, MCV 74.9 L, MCH 22.6 L, MCHC 30.1 L, RDW Std Deviation 48.2 H, RDW Coeff of Domitila 18.1 H, Plt Count 381, MPV 8.6, Immature Gran % (Auto) 0.200, Neut % (Auto) 45.6 L, Lymph % (Auto) 37.2, [place] % (Auto) 12.3 H, Eos % (Auto) 3.6, Baso % (Auto) 1.1 H, Absolute Neuts (auto) 2.6, Absolute Lymphs (auto) 2.09, Nucleated RBC % 0, Sodium 141, Potassium 3.9, Chloride 110 H, Carbon Dioxide 26.0, Anion Gap 5, BUN 14, Creatinine 0.87, Estim Creat Clear Calc 113.97, Est GFR (MDRD) Af Amer 121, Est GFR (MDRD) Non-Af 100, BUN/Creatinine Ratio 16.2, Glucose 93, Calcium 8.8 Radiography Diagnostic Testing: Radiology Impression Echocardiogram 06/24/23 20:42 Interpretation Summary Normal LV size. Left ventricular systolic function is normal. The estimated ejection fraction is 55 %. Stage 1 diastolic dysfunction. The left atrium is moderately enlarged. Pulmonary artery systolic pressure is 30 mmHg. Ordering Physician: Porfirio Alonso Referring Physician: FELI PCP Performed By: Keila Owens RCS Rhythm Strip Rate: 68 Ectopy: None Physical Exam Const alert, oriented x3 and no apparent distress General Appearance: cooperative and well developed HEENT normocephalic, head/scalp atraumatic, moist oral mucous membranes and oropharynx normal Eyes PERRL and EOMs intact bilaterally Neck no lymphadenopathy, supple and no JVD Lymph Lymphatic: no lymphadenopathy noted and no lymphedema noted Resp normal respiratory effort, normal air movement and clear to auscultation bilaterally Cardio regular rate, regular rhythm, S1 normal heart sound, S2 normal heart sound and no murmurs GI normal to inspection, nondistended, normoactive bowel sounds, soft to palpation, non-tender and non-distended Extremity normal capillary refill, no clubbing, cyanosis or edema and no calf tenderness Skin General Skin Exam: no breakdown Neuro CN's II-XII intact bilaterally, no focal motor deficits, no sensory deficits noted and deep tendon reflexes 2+ bilaterally Motor Exam: strength 5/5 throughout Psych thought process normal, cooperative and affect normal Assessment & Plan Assessment/Plan (1) Pulmonary embolism: QUALIFIERS: Pulmonary embolism type: other Chronicity: acute Acute cor pulmonale presence: without acute cor pulmonale Qualified Code(s): I26.99 - Other pulmonary embolism without acute cor pulmonale (2) Acute alteration in mental status: PLAN: Plan #Syncope * thought to be due to PE * He had been diagnosed with PE in the left main pulmonary artery about 3 months prior to admission. Apparently he had been on anticoagulation for just 5 days and then discharged home. He was able to get his prescription filled because he was not able to see his doctor. * Repeat CTA on admission showed small volume nonocclusive acute PE in left main pulmonary artery with no evidence of right heart strain. * He is currently on Eliquis. Troponins and BNP were within normal limits. * Patient subsequently said that he had also had urinary incontinence and felt confused after previous episodes of syncope on outpatient basis. There is concern for possible seizure disorder. * EEG done and reported today showed a normal awake and drowsy EEG with no evidence of epileptiform discharges, seizure patterns or lateralizing signs * neurology consulted. Await rec's * #PE: On Eliquis as above. #Transient hypotension: Resolved. 2D echo showed EF of 55% with stage I diastolic dysfunction #History of polysubstance abuse and nicotine dependence: * Urine tox positive for cannabinoids. Counseled to quit. * Nicotine patch. * Counseled to follow-up with pulmonology on outpatient basis for PFTs as he has had a mild occasional cough. DVT prophylaxis: already on eliquis Charges/Coding Visit Charges Inpatient E&M: 16177 Subs Hosp L2
[2023-06-26 15:07] VITALS: BP 134/80; PULSE 77; RESP 14; TEMP 36.6; O2SAT 97
[2023-06-26 15:10] VITALS: RESP 14
[2023-06-26 21:40] VITALS: BP 126/77; PULSE 76; RESP 18; TEMP 36.6; O2SAT 96
[2023-06-27 03:40] VITALS: BP 102/64; PULSE 63; RESP 18; TEMP 36.2; O2SAT 97
[2023-06-27 05:31] LABS: Absolute Lymphocyte Count 2.32 X10^3/uL (0.83-4.51); Absolute Neutrophil Count 2.5 X10^3/uL (2.0-7.7); Basophil# 0.06 X10^3/uL; Eosinophil# 0.19 X10^3/uL; Eosinophils% 3.2 % (0-5); Hematocrit 33.5 % (40-54); Hemoglobin 9.5 g/dL (13.0-16.5); Lymphocyte # 2.32 X10^3/ul (0.83-4.51); Lymphocyte % 39.7 % (19-41); Mean Corp Hgb Conc 28.4 g/dL (32-36); Mean Corpuscular Hgb 21.6 pg (27.0-32.0); Mean Corpuscular Volume 76.1 fL (80-94); Mean Platelet Vol. 8.8 fl (6.2-12.0); Monocyte# 0.74 X10^3/uL; Monocyte% 12.6 % (0-10); NRBC Flagged by Analyzer 0 % (0-5); Neutrophil # 2.53 X10^3/uL (2.7-7.7); Neutrophil % 43.3 % (47-70); Platelet Count 394 K/mm3 (150-450); RBC Distribution Width CV 17.8 % (11.6-14.6); RBC Distribution Width SD 48.9 fl (35.1-43.9); White Blood Count 5.9 K/mm3 (4.4-11.0)
[2023-06-27 06:03] LABS: Anion Gap 6 (5-15); BUN 15 mg/dL (7-18); BUN/Creat Ratio 17.8 RATIO (10-20); Calcium,Total 8.6 mg/dL (8.5-10.1); Chloride 107 mmol/L (98-107); Creatinine, Serum 0.84 mg/dL (0.70-1.30); EST Glomerular Filtration Rate 103 mL/min (>60); Est Glom Filt Rate - Afr Amer 125 mL/min (>60); Estimated Creatinine Clearance 118.04 ml/min; Glucose 93 mg/dL (74-106); Potassium 3.8 mmol/L (3.5-5.1); Sodium Level 138 mmol/L (136-145)
[2023-06-27 09:10] VITALS: BP 113/76; PULSE 82; RESP 16; TEMP 36.2; O2SAT 100
[2023-06-27] MEDS: APIXABAN 5 MG TABLET 10 MG PO (09:14)
[2023-06-27] MEDS: Pantoprazole Sodium 40 MG Tablet PO (09:14)
--- NOTE | 2023-06-27 13:12 | NURSING ---
Called SOC to check on status of consult. Digital Measurement Advisor stated there is a high volume of cases and the patient is on the list.
--- NOTE | 2023-06-27 13:55 | PN_ITS ---
Subjective Subjective Patient seen and examined. He had no complaints and felt well. Review of systems otherwise negative. EEG was negative. He is awaiting neurology evaluation. Objective Data Objective Data Vital Signs: Vital Signs Temp Pulse Resp BP Pulse Ox O2 Del Method 97.1 F L 82 16 113/76 100 Room Air 06/27/23 09:10 06/27/23 09:10 06/27/23 09:10 06/27/23 09:10 06/27/23 09:10 06/27/23 10:00 Oxygen Delivery Method Room Air Weight: 216 lb 0.848 oz Body Mass Index (BMI) 29.2 Intake & Output: Intake and Output for Last 24 Hours 06/25/23 06/26/23 06/27/23 23:59 23:59 23:59 Intake Total 1845 / 1845 1510 / 1510 650 / 650 Balance 1845 / 1845 1510 / 1510 650 / 650 Lab / Micro Data 06/27/23 04:45 06/27/23 04:45 Labs: Laboratory Results - last 24 hr 06/27/23 04:45: WBC 5.9, RBC 4.40 L, Hgb 9.5 L, Hct 33.5 L, MCV 76.1 L, MCH 21.6 L, MCHC 28.4 L D, RDW Std Deviation 48.9 H, RDW Coeff of Domitila 17.8 H, Plt Count 394, MPV 8.8, Immature Gran % (Auto) 0.200, Neut % (Auto) 43.3 L, Lymph % (Auto) 39.7, [place] % (Auto) 12.6 H, Eos % (Auto) 3.2, Baso % (Auto) 1.0, Absolute Neuts (auto) 2.5, Absolute Lymphs (auto) 2.32, Nucleated RBC % 0, Sodium 138, Potassium 3.8, Chloride 107, Carbon Dioxide 25.0, Anion Gap 6, BUN 15, Creatinine 0.84, Estim Creat Clear Calc 118.04, Est GFR (MDRD) Af Amer 125, Est GFR (MDRD) Non-Af 103, BUN/Creatinine Ratio 17.8, Glucose 93, Calcium 8.6 Rhythm Strip Rate: 68 Ectopy: None Physical Exam Const alert, oriented x3, no apparent distress and well nourished General Appearance: cooperative and well developed HEENT normocephalic, head/scalp atraumatic, moist oral mucous membranes and oropharynx normal Eyes PERRL and EOMs intact bilaterally Neck no lymphadenopathy, supple, no JVD and thyroid normal Lymph Lymphatic: no lymphadenopathy noted and no lymphedema noted Resp normal respiratory effort, normal air movement and clear to auscultation bilaterally Cardio regular rate, regular rhythm, S1 normal heart sound, S2 normal heart sound and no murmurs GI normal to inspection, nondistended, normoactive bowel sounds, soft to palpation, non-tender and non-distended Extremity normal capillary refill, no clubbing, cyanosis or edema and no calf tenderness Skin General Skin Exam: no breakdown Neuro CN's II-XII intact bilaterally, no focal motor deficits, no sensory deficits noted and deep tendon reflexes 2+ bilaterally Motor Exam: strength 5/5 throughout Psych thought process normal, cooperative and affect normal Appearance: appropriate Assessment & Plan Assessment/Plan (1) Pulmonary embolism: QUALIFIERS: Pulmonary embolism type: other Chronicity: acute Acute cor pulmonale presence: without acute cor pulmonale Qualified Code(s): I26.99 - Other pulmonary embolism without acute cor pulmonale (2) Acute alteration in mental status: PLAN: Plan #Syncope * thought to be due to PE * He had been diagnosed with PE in the left main pulmonary artery about 3 months prior to admission. Apparently he had been on anticoagulation for just 5 days and then discharged home. He was able to get his prescription filled because he was not able to see his doctor. * Repeat CTA on admission showed small volume nonocclusive acute PE in left main pulmonary artery with no evidence of right heart strain. * He is currently on Eliquis. Troponins and BNP were within normal limits. * Patient subsequently said that he had also had urinary incontinence and felt confused after previous episodes of syncope on outpatient basis. There is concern for possible seizure disorder. * EEG done and reported today showed a normal awake and drowsy EEG with no evide nce of epileptiform discharges, seizure patterns or lateralizing signs * neurology consulted. Still awaiting review. * #PE: On Eliquis as above. #Transient hypotension: Resolved. 2D echo showed EF of 55% with stage I diastolic dysfunction #History of polysubstance abuse and nicotine dependence: * Urine tox positive for cannabinoids. Counseled to quit. * Nicotine patch. * Counseled to follow-up with pulmonology on outpatient basis for PFTs as he has had a mild occasional cough. DVT prophylaxis: already on eliquis Disposition: dc home pending neurology evaluation. Charges/Coding Visit Charges Inpatient E&M: 60058 Subs Hosp L2
--- NOTE | 2023-06-27 14:04 | DCINST_ITS ---
Discharge Instructions Diet Discharge Diet: Low fat / Low cholesterol Activity Discharge Activity: Return to Normal Activity Dressing / Incision Call your doctor if you observe: Fever of 101 or Higher, Shortness of breath, Swelling in the ankles and Chest pain Follow Up Care Test Results: Test results from this visit will be discussed in further detail at your follow- up appointment, if applicable. Discharge Plan Admission Admit Date/Time: 06/24/23 17:16 Primary Reason for Your Visit: Passing out episode Attending Provider: Francisca Castaneda Primary Care Provider: Care Physician,No Primary Consulting Providers: Porfirio Alonso; Stacie Villeda Instructions Patient Instructions: Embolism Pulmonary Dc Additional Instructions / Restrictions: DISCHARGE INSTRUCTIONS PLEASE READ *Please take this with you to your next doctors appointment* -You are diagnosed with another blood clot in your lung will need to take a blood thinner upon discharge. You will be sent in Eliquis with instructions to take 10 mg twice daily for 7 days followed by 5 mg twice daily thereafter -It is advised that he follow-up with a cello teacher upon discharge, please call their office to schedule an establish care appointment due to your blood clotting. There were several tests pending to assess for any underlying disorders that may be leading to the blood clots and these can be followed up through your primary care physician or cello teacher office -It is advised you refrain from any substance use -Please call your primary care provider's office upon discharge to schedule a hospital follow up within 1 week. -If you do not have a primary care physician of list of local primary care physicians can be provided for you upon discharge. Please ask for this list prior to discharge -For any concerning signs or symptoms please call 911 or proceed to the nearest emergency department Discharge Orders/Prescriptions Prescriptions: New Eliquis DVT-PE Treat 30D Start 5 mg (74 tabs) tablets,dose pack 5 mg PO BID Qty: 74 2RF Rx Instructions: take 2 tabs (10mb) twice daily till July 01 2023, then continue with one tab (5mg) twice daily on July 02 2023. Referrals / Follow Up: Armin Zamarripa DO [Med Staff - Active Staff] - (Is advised to follow-up with hematology on discharge due to your repeat blood clotting. Please call upon discharge to schedule an establish care appointment) Care Physician,No Primary [Primary Care Provider] - ( -If you do not have a primary care physician of list of local primary care physicians can be provided for you upon discharge. Please ask for this list prior to discharge) Disposition Disposition (needs filled in before D/C Order can be placed): Home, Self Care
[2023-06-27 14:30] VITALS: BP 152/94; PULSE 87; RESP 16; TEMP 36.2; O2SAT 100
--- NOTE | 2023-06-27 16:29 | CT_ITS ---
EXAM: CT HEAD WITHOUT INTRAVENOUS CONTRAST CLINICAL INDICATION: syncope TECHNIQUE: Multiple axial images were obtained of the head without intravenous contrast. This CT exam was performed using one or more of the following dose reduction techniques: automated exposure control, adjustment of the mA and/or kV according to patient size, and/or use of iterative reconstruction technique. RADIATION DOSE: CTDIvol = 44.99 mGy, DLP = 812.98 mGy-cm COMPARISON: No relevant prior studies available. FINDINGS: BRAIN AND EXTRA-AXIAL SPACES: Unremarkable. No intra- or extra-axial hemorrhage. No evidence of acute infarct. No intracranial mass or mass effect. There is preservation of the casanova/white matter interface. Posterior fossa structures are unremarkable. Ventricles are appropriate for age. No hydrocephalus. Basal cisterns are patent. BONES/JOINTS: Unremarkable. No discrete lytic or blastic abnormalities. SINUSES: Unremarkable as visualized. Clear. MASTOID AIR CELLS: Unremarkable. Clear. ORBITS: Visualized globes, extraocular muscles, optic nerves and retrobulbar fat appear unremarkable. CT/Brain/Head without Contrast IMPRESSION: Negative head/brain CT without intravenous contrast. Electronically Signed: Emery Alcantar MD at 17:41 EDT ,
--- NOTE | 2023-06-28 07:14 | DS.PCM_ITS ---
Providers Date of Admission: 06/24/23 Primary Care Physician: Tanisha Primary Care Phys Reason For Visit: SYNCOPE Diagnosis Discharge Diagnosis (1) Pulmonary embolism: Status: Acute Code(s): I26.99 - Other pulmonary embolism without acute cor pulmonale Qualifiers: Acute cor pulmonale presence: without acute cor pulmonale Chronicity: acute Pulmonary embolism type: other Qualified Code(s): I26.99 - Other pulmonary embolism without acute cor pulmonale (2) Acute alteration in mental status: Status: Acute Code(s): R41.82 - Altered mental status, unspecified Plan #Syncope * thought to be due to PE * He had been diagnosed with PE in the left main pulmonary artery about 3 months prior to admission. Apparently he had been on anticoagulation for just 5 days and then discharged home. He was able to get his prescription filled because he was not able to see his doctor. * Repeat CTA on admission showed small volume nonocclusive acute PE in left main pulmonary artery with no evidence of right heart strain. * He is currently on Eliquis. Troponins and BNP were within normal limits. * Patient subsequently said that he had also had urinary incontinence and felt confused after previous episodes of syncope on outpatient basis. There is concern for possible seizure disorder. * EEG done and reported today showed a normal awake and drowsy EEG with no
--- NOTE | 2023-06-28 07:14 | PCM.DC.SUM ---
Providers Date of Admission: 06/24/23 Primary Care Physician: Tanisha Primary Care Phys Reason For Visit: SYNCOPE Diagnosis Discharge Diagnosis (1) Pulmonary embolism: Status: Acute Code(s): I26.99 - Other pulmonary embolism without acute cor pulmonale Qualifiers: Acute cor pulmonale presence: without acute cor pulmonale Chronicity: acute Pulmonary embolism type: other Qualified Code(s): I26.99 - Other pulmonary embolism without acute cor pulmonale (2) Acute alteration in mental status: Status: Acute Code(s): R41.82 - Altered mental status, unspecified Plan #Syncope thought to be due to PE He had been diagnosed with PE in the left main pulmonary artery about 3 months prior to admission. Apparently he had been on anticoagulation for just 5 days and then discharged home. He was able to get his prescription filled because he was not able to see his doctor. Repeat CTA on admission showed small volume nonocclusive acute PE in left main pulmonary artery with no evidence of right heart strain. He is currently on Eliquis. Troponins and BNP were within normal limits. Patient subsequently said that he had also had urinary incontinence and felt confused after previous episodes of syncope on outpatient basis. There is concern for possible seizure disorder. EEG done and reported today showed a normal awake and drowsy EEG with no evidence of epileptiform discharges, seizure patterns or lateralizing signs neurology consulted. Still awaiting review. #PE: On Eliquis as above. #Transient hypotension: Resolved. 2D echo showed EF of 55% with stage I diastolic dysfunction #History of polysubstance abuse and nicotine dependence: Urine tox positive for cannabinoids. Counseled to quit. Nicotine patch. Counseled to follow-up with pulmonology on outpatient basis for PFTs as he has had a mild occasional cough. DVT prophylaxis: already on eliquis Disposition: dc home pending neurology evaluation. Medications at Discharge Home Medications apixaban 5 mg (74 tabs) tablets in a dose pack (Eliquis DVT-PE Treat 30D Start) 5 mg PO BID #74 tabs 06/27/23 Hospital Course Operations None Procedures Electroencephalogram Summary of Care Provided Minutes Spent on Discharge: 55 Hospital Course: Patient is a 48-year-old male with past medical history as outlined who was admitted through the ED on 06/24/2023 with a complaint of syncope. This happened while as well as he was smoking marijuana. He said he used marijuana very often and also used crack cocaine until 2 weeks prior to admission. He said his syncope lasted about 30 seconds to 1 minute and when he woke up he was a bit confused after that. He also had assisted urinary incontinence. He had been diagnosed with PE about 3 months prior to this admission and states he was started on Eliquis but given only a 5-day prescription. He subsequently tried to follow-up with his PCP for prescription but could not be seen by his PCP. On admission he had CT of the chest which showed a small volume nonocclusive acute pulmonary embolism in the left main pulmonary artery but no right heart strain. Was started on therapeutic notes that subsequently transition to Eliquis treatment dose. In light of his syncope with associated confusion and urinary incontinence, there was concern for seizures so he had an EEG done which showed a normal awake and drowsy EEG with no evidence of epileptiform discharges, seizure patterns or lateralizing signs. Neurology was consulted and reviewed patient. Neurology recommended a CT of the brain which showed no acute intracranial pathology. Neurology recommended that patient not to be discharged on any antiseizure medication as they were not convinced that patient did have a seizure disorder. Patient was discharged home on 06/28/2023 on p.o. Eliquis treatment dose namely 10 mg twice daily for 7 days and then to continue with 5 mg twice daily. He was counseled that he would need to be on Eliquis for at least 3 to 6 months. He was counseled to quit using marijuana and crack cocaine. He is to follow-up with his primary care doctor within 1 to 2 weeks. Patient seen and examined prior to discharge. He had no active complaints and had an uneventful night. Review of systems otherwise negative. Labs and vitals reviewed. Medication reviewed and reconciled. Physical Exam Const alert, oriented x3, no apparent distress and well nourished General Appearance: cooperative, comfortable, well kempt and well developed HEENT normocephalic, head/scalp atraumatic, hearing grossly normal bilaterally, moist oral mucous membranes and oropharynx normal Mouth: oral and palatal mucosa normal Eyes PERRL, EOMs intact bilaterally and conjunctivae normal Neck no lymphadenopathy, supple, no JVD and thyroid normal Lymph Lymphatic: no lymphadenopathy noted and no lymphedema noted Resp normal respiratory effort, normal air movement, no use of accessory muscles and clear to auscultation bilaterally Cardio regular rate, regular rhythm, S1 normal heart sound, S2 normal heart sound and no murmurs GI normal to inspection, nondistended, normoactive bowel sounds, soft to palpation, non-tender and non-distended Extremity normal to inspection, full ROM, normal capillary refill, no clubbing, cyanosis or edema and no calf tenderness Skin no rashes or lesions noted, no wounds and skin turgor normal General Skin Exam: no breakdown Neuro oriented x3, CN's II-XII intact bilaterally, moves all extremities, no focal motor deficits, no sensory deficits noted and deep tendon reflexes 2+ bilaterally Sensorium / Orientation: awake and alert Motor Exam: strength 5/5 throughout Psych thought process normal, cooperative and affect normal Appearance: appropriate Weight / BMI Weight Weight: 216 lb 0.848 oz Body Mass Index (BMI) 29.2 ABG / Lab / Microbiology Data 06/27/23 04:45 06/27/23 04:45 Radiography Diagnostic Testing: Radiology Impression Brain CT 06/27/23 16:29 IMPRESSION: Negative head/brain CT without intravenous contrast. Electronically Signed: Emery Alcantar MD at 17:41 EDT Reading Location ID and State: [facility] / [place] , Service support , D/C Instructions Discharge Diet: Low fat / Low cholesterol Discharge Activity: Return to Normal Activity Weight Bearing Status: Weight bearing as tolerated Call your doctor if you observe: Fever of 101 or Higher, Shortness of breath, Swelling in the ankles and Chest pain Meaningful Use Info Meaningful Use Diagnoses (Choose all that apply): None applicable Discharge Plan Admission Admit Date/Time: 06/24/23 17:16 Primary Reason for Your Visit: syncope Attending Provider: Francisca Castaneda Primary Care Provider: Care Physician,No Primary Consulting Providers: Porfirio Alonso; Stacie Villeda Instructions Patient Instructions: Embolism Pulmonary Dc Additional Instructions / Restrictions: DISCHARGE INSTRUCTIONS PLEASE READ *Please take this with you to your next doctors appointment* -You are diagnosed with another blood clot in your lung will need to take a blood thinner upon discharge. You will be sent in Eliquis with instructions to take 10 mg twice daily for 7 days followed by 5 mg twice daily thereafter -It is advised that he follow-up with a associate property manager upon discharge, please call their office to schedule an establish care appointment due to your blood clotting. There were several tests pending to assess for any underlying disorders that may be leading to the blood clots and these can be followed up through your primary care physician or associate property manager office -It is advised you refrain from any substance use -Please call your primary care provider's office upon discharge to schedule a hospital follow up within 1 week. -If you do not have a primary care physician of list of local primary care physicians can be provided for you upon discharge. Please ask for this list prior to discharge -For any concerning signs or symptoms please call 911 or proceed to the nearest emergency department Discharge Orders/Prescriptions Prescriptions: New Eliquis DVT-PE Treat 30D Start 5 mg (74 tabs) tablets,dose pack 5 mg PO BID Qty: 74 2RF Rx Instructions: take 2 tabs (10mb) twice daily till July 01 2023, then continue with one tab (5mg) twice daily on July 02 2023. Referrals / Follow Up: Armin Zamarripa DO [Med Staff - Active Staff] - (Is advised to follow-up with hematology on discharge due to your repeat blood clotting. Please call upon discharge to schedule an establish care appointment) Care Physician,No Primary [Primary Care Provider] - ( -If you do not have a primary care physician of list of local primary care physicians can be provided for you upon discharge. Please ask for this list prior to discharge) Disposition Disposition (needs filled in before D/C Order can be placed): Home, Self Care Charges/Coding Visit Charges Inpatient E&M: 15775 Disch Hosp >30min
[2023-06-30 05:07] LABS: Protein C Antigen 104 % (60-150); Protein C, Functional 124 % (73-180)
[2023-07-05 11:07] LABS: Anti-Cardiolipin Ab, IgG, Qn < 9 GPL U/mL (0-14); Anti-Cardiolipin Ab, IgM, Qn 9 MPL U/mL (0-12); Anti-Thrombin 3 AG, Immunol 122 % (72-124); Antithrombin 3 Function 118 % (75-135); Beta-2-Glycoprotein I IgA <9 (0-25); Beta-2-Glycoprotein I IgG <9 (0-20); Beta-2-Glycoprotein I IgM <9 (0-32); Protein C, Functional 116 % (73-180)
== END 2023-06-27 17:46 | disposition home or self-care (01) ==
LOC: ED 17:13 → PCU 17:47
PROVIDERS: Emergency Medicine; Internal Medicine; Admitting Provider Internal Medicine; Emergency Provider Emergency Medicine; Visit Provider Student in an Organized Health Care Education/Training Program
DX: I26.99 Other pulmonary embolism without acute cor pulmonale (principal); F15.10 Other stimulant abuse, uncomplicated; R41.82 Altered mental status, unspecified; R55 Syncope and collapse; I95.9 Hypotension, unspecified; F17.210 Nicotine dependence, cigarettes, uncomplicated; R32 Unspecified urinary incontinence; F12.10 Cannabis abuse, uncomplicated; Z91.199 Patient's noncompliance with other medical treatment and regimen due to unspecified reason; Z79.01 Long term (current) use of anticoagulants
CPT/HCPCS: 36415; 70450; 71275; 80048; 80307; 81240; 81241; 82077; 83605; 83735; 83880; 84100; 84443; 84484; 85025; 85300; 85301; 85302; 85303; 85379; 86146; 86147; 93005; 93306; 94668; 95819; 96360; 96361; 96372; 99221; 99285; 99406; J7030; Q9967; A4216; G0378

== ENCOUNTER 2023-09-03 18:34 | Emergency (ER) | payer MEDICAID, SELFPAY ==
[2023-09-03 18:37] VITALS: BP 131/83; PULSE 103; RESP 16; TEMP 36; O2SAT 96; BMI 28.7
[2023-09-03 18:40] VITALS: BP 131/83; PULSE 103; RESP 18; TEMP 36; O2SAT 96
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
[2023-09-03] MEDS: APIXABAN 5 MG TABLET PO (20:18)
[2023-09-03 20:23] VITALS: O2SAT 98
[2023-09-03 21:43] VITALS: PULSE 86; O2SAT 96
--- NOTE | 2023-09-03 22:12 | ED.RN ---
went to find patient in waiting room to ask a question about insurance for meds to bed. patient could not be found in waiting room or outside hospital. pharmacy notified and stated they would keep it on file if patient comes back to get it at another time.
== END 2023-09-03 22:15 | disposition home or self-care (01) ==
PROVIDERS: Emergency Provider Emergency Medicine; Visit Provider Emergency Medicine
DX: Z76.0 Encounter for issue of repeat prescription (principal); F15.20 Other stimulant dependence, uncomplicated; F17.210 Nicotine dependence, cigarettes, uncomplicated; Z86.711 Personal history of pulmonary embolism
CPT/HCPCS: 99282